=== PATIENT | female | born 1950 | race Caucasian/White ===

== ENCOUNTER 2024-08-30 14:40 | Emergency (ER) | payer MEDICARE, SELFPAY ==
[2024-08-30 14:40] VITALS: BP 238/99; PULSE 96; RESP 18; O2SAT 99
--- NOTE | 2024-08-30 15:09 | W.ED.GENAD ---
Discharge Plan Disposition Patient Disposition: Home Discharge Details Clinical Impression: Blood pressure elevated without history of HTN Primary Care Provider: None,None ED Provider: Fareed Meza Home Meds and New Rx's Prescriptions: Discontinued ibuprofen [Advil] 200 mg tablet 800 mg PO Q6H PRN Discharge Instructions Instructions: DASH diet Additional Instructions: You are seen in the emergency department for your high blood pressure. Your labs shows that your kidneys are working well but I am concerned about the ibuprofen you have been taking. Please rely on acetaminophen (Tylenol). If you need to take ibuprofen please follow this dosing schedule below: For your pain please take medications as follows: 1. Take acetaminophen (Tylenol), 1,000 mg (two 500 mg tabs) every 6 hours [2. Take ibuprofen (Advil), 200 mg every 8 hours.] As we discussed if you develop any weakness in any of your extremities or chest pain please return to the emergency department. Please also return if you develop a headache. HPI General Date/Time Provider Initiated Documentation: 08/30/24 14:41. HPI Narrative: MDM This is an overall well-appearing normothermic and not tachycardic 74-year-old female with elevated blood pressure and increased ibuprofen dose. I consider possibility of renal injury for which labs will be performed. Concerning her chronic knee pain she has had no fevers to suggest septic joint. She she does not routinely drink ethanol so not suspicious for gout. No pain or proportion to suggest necrotizing soft tissue infection. Patient is neurologically intact so I am not suspicious for CVA and I do not feel that the patient would be a candidate for tPA will require MRI. Her blood pressure is significantly elevated, which could potentially lead to serious complications such as strokes, heart attacks, and aortic dissections if left untreated for an extended period. The high dose of ibuprofen she has been taking is concerning, as it can cause kidney damage and subsequently elevate blood pressure. Basic laboratory tests will be conducted to assess her overall health status. An intravenous line will be inserted for potential electrolyte adjustments. A referral to a primary care physician will be made for further management of her condition. If the lab results are normal, the primary care physician will decide on the necessity of initiating antihypertensive medication or simply monitoring her blood pressure. 2. Chronic knee pain. She reports chronic knee pain and difficulty getting up from a seated position. She has been taking 4 Advil (ibuprofen) 200 mg tablets in the morning, afternoon, and at bedtime, which is higher than the recommended dose. She is advised to reduce her ibuprofen intake to 600 mg every six to eight hours, assuming her kidney function is normal. Further evaluation and management of her knee pain will be discussed with her primary care physician. 4:12 PM Patient blood pressure improved slightly but remains elevated. I have asked health community development technician coordinator Katty reach out to on-call telephone provider, [place], for today to have the patient seen in follow-up. Patient I discussed that she should return to the ED if she developed any syncope chest pain shortness of breath or any weakness in any of her extremities. She understood her return indications and was discharged with an empiric trial of expectant outpatient management. I updated the patient's daughters. Patient's blood pressure did improve to 213/82. HPI The patient presents for evaluation of elevated blood pressure. She experienced a mechanical fall from a roller chair, necessitating a lift assist from the fire department. During their assessment, they noted significantly elevated blood pressure, prompting her to seek medical attention today. She reports no symptoms related to this hypertension, including no head trauma, loss of consciousness, vomiting, or nausea. Her mobility remains unchanged, although she does have pre-existing knee and leg issues that make it difficult for her to get up from a seated position. She reports no headaches, speech difficulties, dysuria, chest pain, or abdominal pain. Prior to the fall, she was in her usual state of health. She has not sought medical care in several years and does not have a primary care physician. She can not recall her last medical visit, but estimates it was over a decade ago. She is not experiencing any respiratory distress or unintentional weight gain. She recalls a previous episode of hypertension at [facility] approximately 10 years ago, but no treatment was initiated at that time. She reports no current medication use, but admits to taking Advil 200 mg 4 tablets in the morning, 4 tablets in the afternoon, and 4 tablets at bedtime. She also took 4 tablets prior to this visit. She has been using ibuprofen daily since the onset of her knee issues. She has a history of a bacterial infection in her stomach approximately 20 to 25 years ago, which required ICU admission. Exam General: Well-appearing in no acute distress speaking in complete sentences. Head: Normocephalic, atraumatic. Eye:[Pupils equal, round reactive to light.] Extraocular eye movements intact. No conjunctival injection. No scleral icterus. Ear, nose, mouth, throat: Grossly normal inspection. Normal voice, handling secretions normally. Neck: Trachea midline. Cardiovascular: Well-perfused distal extremities. Respiratory: Nonlabored respiration. Clear lungs bilaterally. Gastrointestinal: Nondistended abdomen. Musculoskeletal: No edema. Moving all 4 extremities spontaneously. Skin: Normal for age and race, grossly normal temperature and turgor. No acute rash. Neurologic: Alert and appropriate, no apparent acute deficits. Cranial nerves II through XII intact grossly. 5 out of 5 bilateral upper lower extremity strength. Related Data Allergies Allergy/AdvReac Type Severity Reaction Status Date / Time No Known Allergies Allergy Verified 08/30/24 14:47 General Stated Complaint: GenMedical BELEN: 3 Course Vital Signs Vital signs: Vital Signs Pulse 96 H 08/30/24 14:40 Respiratory Rate 18 08/30/24 14:40 Blood Pressure 238/99 H 08/30/24 14:40 Pulse Oximetry 99 08/30/24 14:40 Pulse 96 H 08/30/24 14:40 Respiratory Rate 18 08/30/24 14:40 Blood Pressure 238/99 H 08/30/24 14:40 Pulse Oximetry 99 08/30/24 14:40 Oxygen Delivery Method Room Air 08/30/24 14:40 Oxygen Flow Rate 0 08/30/24 14:40 Medical Decision Making Quality:SDOH Health Related Social Needs: No Data to Display PFSH All Active Problems (Updated 08/30/24 @ 16:13 by Fareed Meza MD) Blood pressure elevated without history of HTN (Acute) Social History Smoking risk assessment performed?: No
[2024-08-30 15:28] VITALS: TEMP 36.6
[2024-08-30 15:35] LABS: Abs Immature Grans 0.04 10^3/uL (0.0-0.06); Absolute Basophil Count 0.07 10^3/uL (0.0-0.2); Absolute Eosinophil Count 0.01 10^3/uL (0.0-0.7); Absolute Lymphocyte Count 1.27 10^3/uL (1.2-3.4); Absolute Monocyte Count 1.08 10^3/uL (0.1-0.8); Basophils % 0.5 %; Eosinophils % 0.1 %; HGB 14.1 g/dL (11.2-15.7); Immature Grans % 0.3 %; Lymphocytes % 9.5 %; MCH 28.5 pg (27.0-33.0); MCV 89 fL (80-95); MPV 10.4 fL (8.0-11.0); Monocytes % 8.1 %; Neutrophils % 81.5 %; Platelet Count 329 10^3/uL (130-400); RBC 4.95 10^6/uL (3.93-5.22); RDW 13.4 % (11.7-14.6); RDW-SD 43.8 fL; WBC 13.38 10^3/uL (4.4-10.8)
[2024-08-30 15:39] LABS: Anion Gap 11.4 mmol/L (3-11); BUN 33 mg/dL (7-18); CO2 26.6 mmol/L (21.0-32.0); CREATININE 1.1 mg/dL (0.55-1.02); Calcium 9.6 mg/dL (8.5-10.1); Chloride 107 mmol/L (98-107); Estimated GFR 52.73 (mL/min/1.73m2); Glucose 102 mg/dL (74-106); Potassium 3.9 mmol/L (3.5-5.1); Sodium 145 mmol/L (136-145)
== END 2024-08-30 17:38 | disposition home or self-care (01) ==
LOC: ER 16:23
PROVIDERS: Emergency Provider Emergency Medicine
DX: R03.0 Elevated blood-pressure reading, without diagnosis of hypertension (principal)
CPT/HCPCS: 36415; 80048; 99283; 85025

== ENCOUNTER 2024-09-28 12:48 | Outpatient (REF) | payer MEDICARE, SELFPAY ==
[2024-09-28 15:38] LABS: Abs Immature Grans 0.02 10^3/uL (0.0-0.06); Absolute Basophil Count 0.06 10^3/uL (0.0-0.2); Absolute Eosinophil Count 0.07 10^3/uL (0.0-0.7); Absolute Monocyte Count 0.63 10^3/uL (0.1-0.8); Absolute Neutrophil Count 6.38 10^3/uL (1.2-6.7); Basophils % 0.7 %; Eosinophils % 0.8 %; Immature Grans % 0.2 %; MCH 28.1 pg (27.0-33.0); MCHC 31.7 % (32.0-36.0); MCV 89 fL (80-95); MPV 11.2 fL (8.0-11.0); Neutrophils % 70.3 %; Platelet Count 405 10^3/uL (130-400); RBC 4.62 10^6/uL (3.93-5.22); RDW 14.4 % (11.7-14.6); RDW-SD 46.1 fL; WBC 9.06 10^3/uL (4.4-10.8)
[2024-09-28 17:30] LABS: ALT 19 U/L (14-59); AST 16 U/L (15-37); Albumin 3.8 g/dL (3.4-5.0); Alkaline Phosphatase 100 U/L (46-116); BUN 13 mg/dL (7-18); Bilirubin, Total 0.37 mg/dL (0.2-1.0); CREATININE 0.8 mg/dL (0.55-1.02); Chloride 107 mmol/L (98-107); Estimated GFR 77.27 (mL/min/1.73m2); Glucose 82 mg/dL (74-106); Potassium 4.7 mmol/L (3.5-5.1); Sodium 143 mmol/L (136-145); Total Protein 6.7 g/dL (6.4-8.2)
== END 2024-09-28 12:49 | disposition home or self-care (01) ==
LOC: NCHCN 12:48
PROVIDERS: Visit Provider Student in an Organized Health Care Education/Training Program
DX: M25.511 Pain in right shoulder (principal)
CPT/HCPCS: 80053; 85025

== ENCOUNTER 2024-11-25 01:11 | Outpatient (CLI) | payer MEDICARE, SELFPAY ==
--- NOTE | 2024-11-25 | DI.MRI_ITS ---
Exam(s) MR UPPER JOINT RT WO EXAM: MR UPPER JOINT RT WO CLINICAL HISTORY: PAIN OF RIGHT SHOULDER, M25.511,MULT FALLS,SWELLING DELTOID,? TEAR. TECHNIQUE: Multiplanar multisequence MRI was performed. COMPARISON: No exams were available for comparison FINDINGS: BONES: There is no fracture or contusion pattern. There is a subchondral cyst seen in the greater tub erosity. JOINTS: There are degenerative changes seen at the acromioclavicular joint. Marked degenerative dukes ges are also seen at the glenohumeral joint with loss of the articular cartilage, joint space narrowi ng and osteophytes seen inferiorly. There is a moderate size joint effusion. TENDONS: Supraspinatus: There is tendinosis of the supraspinatus tendon but no evidence of a tear. Infraspinatus: Unremarkable. Subscapularis: There is tendinosis of the subscapularis tendon but no evidence of a tear. [place]: Unremarkable. Biceps and [place]: There is mild thickening of the long head of the biceps which may represent a tend inosis. No evidence of a tear. MUSCLES: Mild fatty atrophy. The deltoid muscle is intact. GLENOID LABRUM: The glenoid labrum is irregular and heterogeneous consistent with degeneration. SOFT TISSUES: There is fluid seen in the subcoracoid bursa. There are object seen within the subcora coid bursa which may represent loose bodies. LIGAMENTS: Unremarkable. OTHER: There is a small amount of fluid in the subacromial subdeltoid bursa. IMPRESSION: 1. No evidence of a rotator cuff tear. Tendinosis of the supraspinatus, subscapularis and biceps ten don. Mild fatty atrophy of the rotator cuff muscles. 2. The deltoid muscle appears intact. 3. 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 4. Moderate size joint effusion. 5. Irregular and heterogeneous labrum likely reflecting degeneration. DATA REPOSITORY:
== END 2024-11-25 01:31 ==
LOC: DI 01:11
PROVIDERS: PCP Student in an Organized Health Care Education/Training Program; Visit Provider Student in an Organized Health Care Education/Training Program
DX: M75.21 Bicipital tendinitis, right shoulder (principal)
CPT/HCPCS: 73221

== ENCOUNTER 2024-12-21 13:55 | Outpatient (CLI) | payer MEDICARE, MEDICAID, SELFPAY ==
--- NOTE | 2024-12-21 13:45 | DI.RAD_ITS ---
Exam(s) XR SHOULDER RT COMPLETE 2+V EXAM: XR SHOULDER RT COMPLETE 2+V CLINICAL HISTORY: RIGHT SHOULDER PAIN. TECHNIQUE: 2D digital imaging was performed. Five views. COMPARISON: No exams were available for comparison FINDINGS: BONES: No acute fracture is present. No bony destructive lesion is seen. JOINTS: No dislocation present. There is severe narrowing of the glenohumeral joint space, with a yusef ne-on-bone appearance. There is an inferiorly projecting osteophyte from the margin of the humeral h ead. There is spurring at the glenoid. The AC joint shows mild degenerative changes. SOFT TISSUE: Normal. IMPRESSION: Severe degenerative changes of the glenohumeral joint. DATA REPOSITORY: RADIATION DOSE DELIVERED:
== END 2024-12-21 13:56 | disposition home or self-care (01) ==
LOC: DIORS 13:56
PROVIDERS: PCP Student in an Organized Health Care Education/Training Program; Referring Provider Student in an Organized Health Care Education/Training Program; Visit Provider Student in an Organized Health Care Education/Training Program
DX: M19.011 Primary osteoarthritis, right shoulder (principal)
CPT/HCPCS: 99213; 73030

== ENCOUNTER 2025-04-25 19:37 | Outpatient (CLI) | payer MEDICARE, MEDICAID, SELFPAY ==
[2025-04-25 13:46] LABS: HCT 39.5 % (36.0-46.0); HGB 12.5 g/dL (11.2-15.7); MCH 29.3 pg (27.0-33.0); MCHC 31.6 % (32.0-36.0); MCV 93 fL (80-95); MPV 9.6 fL (8.0-11.0); Platelet Count 367 10^3/uL (130-400); RBC 4.27 10^6/uL (3.93-5.22); RDW 13.3 % (11.7-14.6); RDW-SD 45.4 fL; WBC 8.36 10^3/uL (4.4-10.8)
[2025-04-25 14:25] LABS: Anion Gap 7.3 mmol/L (3-11); BUN 10 mg/dL (7-18); CO2 29.7 mmol/L (21.0-32.0); Calcium 10.0 mg/dL (8.5-10.1); Chloride 104 mmol/L (98-107); Estimated GFR 90.14 (mL/min/1.73m2); Glucose 111 mg/dL (74-106); Potassium 3.8 mmol/L (3.5-5.1); Sodium 141 mmol/L (136-145)
[2025-04-26 09:49] LABS: Prealbumin 22 mg/dL (20-40)
== END 2025-04-25 19:38 | disposition home or self-care (01) ==
LOC: LBO 19:37
PROVIDERS: PCP Student in an Organized Health Care Education/Training Program; Visit Provider Surgery Vascular Surgery
DX: I63.9 Cerebral infarction, unspecified (principal)
CPT/HCPCS: 36415; 80048; 85027; 84134

== ENCOUNTER 2025-05-24 06:24 | Emergency (ER) | payer MEDICARE, MEDICAID, SELFPAY ==
[2025-05-24 06:20] VITALS: BP 191/97; PULSE 78; RESP 16; TEMP 36; O2SAT 97
[2025-05-24 06:34] VITALS: BP 189/80
--- NOTE | 2025-05-24 07:02 | W.ED.GENAD ---
Discharge Plan Disposition Patient Disposition: Home Discharge Details Clinical Impression: Hx of falling, Closed left fibular fracture Primary Care Provider: Kehinde Rodriguez ED Provider: Fareed Meza Home Meds and New Rx's Prescriptions: Continued clopidogrel 75 mg tablet 75 mg PO DAILY amlodipine 5 mg tablet 5 mg PO DAILY diclofenac sodium [Arthritis Pain (diclofenac)] 1 % gel 2 g topical QID Rx Instructions: apply to single elbow, wrist or hand; for hand includes palm/fingers/back of hand aspirin [Adult Low Dose Aspirin] 81 mg tablet,delayed release (DR/EC) 81 mg PO DAILY atorvastatin 40 mg tablet 40 mg PO QHS acetaminophen [Tylenol Extra Strength] 500 mg tablet 1,000 mg PO QID PRN lisinopril 10 mg tablet 10 mg PO DAILY cyanocobalamin (vitamin B-12) 1,000 mcg capsule 1,000 mcg PO DAILY Discharge Instructions Additional Instructions: You are seen the emergency department for your fall. Your x-ray showed that you have a fracture of your fibula. Please use his hinged knee brace. You may bear weight as tolerated. As we discussed if you become lightheaded passout or if you have any other concerns please return to the emergency department. Otherwise please follow-up with orthopedic team. For your pain please take medications as follows: 1. Take acetaminophen (Tylenol), 1,000 mg (two 500 mg tabs) every 6 hours Discharge Data Discharge Date/Time-TO BE ENTERED AT DEPARTURE: 05/24/25 13:05 HPI General Date/Time Provider Initiated Documentation: 05/24/25 06:34. HPI Narrative: MDM Primary survey intact. Reassuring shock index. On secondary survey patient has pain in her proximal right humerus. She can touch her right arm to her contralateral left shoulder so I am not suspicious for right shoulder dislocation. She had no preceding chest pain to suggest benefit from ECG. No black or bloody stools to suggest GI bleed however will obtain basic blood counts and electrolyte assessment. No pain out of proportion to suggest necrotizing soft tissue infection. No dysuria or frequency of his UTI. No shortness of breath to suggest PE. No focal neurological deficits to suggest recurrent CVA. Nontender hips so I am not suspicious for hip fracture. 10 AM CBC lacks anemia and leukocytosis. Mild thrombocytosis. Patient metabolic panel with no RE. Reassuring electrolytes. Radiology was concerned for possible fibular head fracture on x-ray. Will complete CT scan for more sensitive study. 11:41 AM Patient had a reassuring right shoulder and humerus film with no acute fractures. Her x-ray was concerning for a left fibular head fracture. I obtained a CT which showed left fibular head fracture. I reviewed the patient's imaging with Dr. Romero. He did not feel that this was unstable and that patient could have a hinged knee brace and be weightbearing as tolerated. Patient has a walker in the car. Will obtain tib-fib films prior to discharge. Patient her daughter and I discussed with her not to use opiates. Patient has some of her pain medications at home. Will advise acetaminophen. We discussed return indications for syncope worsening pain or any other concerns. 4:05 PM Final read on tib-fib films showed no additional injuries beyond the proximal fibular fracture. Blood pressure improved following home oral medications at time of discharge. HPI This is a patient with a history of strokes and recent carotid artery surgery presenting with a fall. The patient experienced a fall this morning at 4:30 AM while getting out of bed. She reports losing her balance and landing on her buttocks, hitting her right shoulder against the door, and twisting her left knee. She did not lose consciousness and reports no nausea, vomiting, or head injury. She is currently on aspirin and clopidogrel. She has not yet taken her home medications today. The patient reports no neck pain, headaches, chest pain, trouble breathing, or abdominal pain. She does report soreness in her left knee, right arm, and both buttocks. The patient had a fall in 08/2024 and was brought in by ambulance due to a suspected stroke but was sent home. She had another stroke in 10/2024 and underwent carotid artery surgery three weeks ago. She experienced internal bleeding and was readmitted to [facility]. She was in rehab for a couple of weeks after the ICU and returned home last . PAST SURGICAL HISTORY: Carotid artery surgery three weeks ago. Exam General: Well-appearing in no acute distress speaking in complete sentences. Head: Normocephalic, atraumatic. Eye: Extraocular eye movements intact. No conjunctival injection. No scleral icterus. Ear, nose, mouth, throat: Grossly normal inspection. Normal voice, handling secretions normally. Neck: Trachea midline. No midline cervical spinal tenderness. On the left side of the patient's neck and upper chest there is a clean dry intact bandage from recent surgical procedure. No signs of erythema nor strikethrough. Cardiovascular: Well-perfused distal extremities. Regular rate and rhythm. Respiratory: Nonlabored respiration. Clear lungs bilaterally. Gastrointestinal: Nondistended abdomen. Soft nontender. Musculoskeletal: Right shoulder no obvious deformities. Patient does have right proximal humerus tenderness. No lacerations. Left upper extremity nontender full range of motion. Right lower extremity nontender full range of motion. Left lower extremity with tenderness at the knee. No gross instability. No lacerations or ecchymoses. Not pulses PT and DP intact bilaterally. Pelvis stable nontender. Skin: Normal for age and race, grossly normal temperature and turgor. No acute rash. Neurologic: Alert and appropriate, no apparent acute deficits. GCS 15. Psychiatric: Mood and manner are appropriate. Grooming and personal hygiene are appropriate. Related Data Home Medications ?Medication ?Instructions ?Recorded ?Confirmed acetaminophen 500 mg tablet 1,000 mg PO QID PRN 11/03/24 05/24/25 (Tylenol Extra Strength) aspirin 81 mg tablet,delayed 81 mg PO DAILY 11/03/24 05/24/25 release (Adult Low Dose Aspirin) atorvastatin 40 mg tablet 40 mg PO QHS 11/03/24 05/24/25 diclofenac sodium 1 % topical gel 2 g topical QID 11/03/24 05/24/25 (Arthritis Pain (diclofenac)) cyanocobalamin (vitamin B-12) 1,000 mcg PO DAILY 12/16/24 05/24/25 1,000 mcg capsule lisinopril 10 mg tablet 10 mg PO DAILY 12/16/24 05/24/25 amlodipine 5 mg tablet 5 mg PO DAILY 12/21/24 05/24/25 clopidogrel 75 mg tablet 75 mg PO DAILY 12/21/24 05/24/25 Allergies Allergy/AdvReac Type Severity Reaction Status Date / Time No Known Allergies Allergy Verified 12/21/24 13:52 General Stated Complaint: Orthopedic BELEN: 3 Course Vital Signs Vital signs: Vital Signs Temperature 36 C L 05/24/25 06:20 Pulse 78 05/24/25 06:20 Respiratory Rate 16 05/24/25 06:20 Blood Pressure 191/97 H 05/24/25 06:20 Pulse Oximetry 97 05/24/25 06:20 Temperature 36 C L 05/24/25 06:20 Pulse 78 05/24/25 06:20 Respiratory Rate 16 05/24/25 06:20 Blood Pressure 189/80 H 05/24/25 06:34 Blood Pressure Mean 116 05/24/25 06:34 Blood Pressure Position Supine 05/24/25 06:20 Pulse Oximetry 97 05/24/25 06:20 Oxygen Delivery Method Room Air 05/24/25 06:20 Oxygen Flow Rate 0 05/24/25 06:20 Pain Level 5 05/24/25 06:28 PFSH All Active Problems (Updated 05/24/25 @ 11:24 by Fareed Meza MD) Closed left fibular fracture (Acute) Hx of falling (Acute) Arthritis of right glenohumeral joint (Acute) BMI 37.0-37.9, adult (Acute) History of CVA (cerebrovascular accident) (Acute) TIA (transient ischemic attack) (Acute) Medical History (Updated 05/24/25 @ 11:24 by Fareed Meza MD) Palpitations Adjustment disorder with depressed mood Systolic murmur Pain in left toe(s) Right shoulder pain Social History Smoking/Tobacco Use Status: Former Tobacco Use Quit Date: 08/04/14 Smoking risk assessment performed?: Yes Alcohol Intake: never Drug use: Never Substance use type: does not use Housing: house Do you feel safe at home: Yes Do you feel safe in your relationship?: Yes
--- NOTE | 2025-05-24 07:30 | DI.RAD_ITS ---
Exam(s) XR HUMERUS RT XR SHOULDER RT COMPLETE 2+V EXAM: XR SHOULDER RT COMPLETE 2+V and XR humerus RT CLINICAL HISTORY: Right shoulder pain. TECHNIQUE: 2D digital imaging was performed of the right humerus and shoulder. Eight images were obtained. AP, [place]as[place], Y-view, lateral and axillary views were obtained. COMPARISON: CR XR SHOULDER RT COMPLETE 2+V from 12/21/2024 FINDINGS: BONES: No acute fracture is present. No bony destructive lesion is seen. JOINTS: No dislocation present. There again seen marked degenerative changes at the glenohumeral joint characterized by joint space narrowing and osteophytes. There is a large osteophyte at the inferior aspect of the humeral head. There is also mild flattening of the humeral head. Aysi-oc-smwrzcrr degenerative changes are seen at the acromioclavicular joint. SOFT TISSUE: Normal. IMPRESSION: 1. There is no acute fracture or dislocation. 2. Marked osteoarthritis of the glenohumeral joint. 3. Mild degenerative changes at the acromioclavicular joint. DATA REPOSITORY: RADIATION DOSE DELIVERED:
--- NOTE | 2025-05-24 07:30 | DI.RAD_ITS ---
Exam(s) XR KNEE LT 3V AP,LAT,RADHA EXAM: XR KNEE LT 3V AP,LAT,RADHA CLINICAL HISTORY: Left knee pain. TECHNIQUE: 2D digital imaging was performed of the left knee. Three images were obtained. Eight thatAP, lateral and PA tunnel views were obtained. COMPARISON: No exams were available for comparison FINDINGS: BONES: There is a horizontal lucency through the lateral aspect of the head of the fibula suspicious for fracture. No bony destructive lesion is seen. JOINTS: There are moderately severe degenerative changes of the left knee characterized by joint space narrowing and osteophytes. All 3 joint compartments are affected. There is a joint effusion. No loose body. SOFT TISSUE: Normal. IMPRESSION: 1. Nondisplaced fracture through the head of the fibula. 2. Moderately severe degenerative changes involving the left knee, particularly the patellofemoral joint. 3. Joint effusion. DATA REPOSITORY: RADIATION DOSE DELIVERED:
[2025-05-24] MEDS: Acetaminophen 500 MG TAB 1000 MG PO (08:12)
[2025-05-24] MEDS: Lisinopril 10 MG TAB PO (08:12)
[2025-05-24 09:14] LABS: Abs Immature Grans 0.04 10^3/uL (0.0-0.06); HCT 34.9 % (36.0-46.0); HGB 11.2 g/dL (11.2-15.7); Immature Grans % 0.4 %; MCH 29.1 pg (27.0-33.0); MCHC 32.1 % (32.0-36.0); MCV 91 fL (80-95); MPV 9.1 fL (8.0-11.0); Platelet Count 428 10^3/uL (130-400); RBC 3.85 10^6/uL (3.93-5.22); RDW 13.8 % (11.7-14.6); RDW-SD 45.4 fL; WBC 10.42 10^3/uL (4.4-10.8)
[2025-05-24 09:21] LABS: Anion Gap 9.3 mmol/L (3-11); BUN 12 mg/dL (7-18); CO2 27.7 mmol/L (21.0-32.0); Calcium 9.2 mg/dL (8.5-10.1); Chloride 105 mmol/L (98-107); Estimated GFR 93.55 (mL/min/1.73m2); Glucose 84 mg/dL (74-106); Potassium 4.4 mmol/L (3.5-5.1); Sodium 142 mmol/L (136-145)
--- NOTE | 2025-05-24 10:00 | DI.CT_ITS ---
Exam(s) CT LOWER EXTREMITY LT WO EXAM: CT LOWER EXTREMITY LT WO CLINICAL HISTORY: Left knee pain x-ray of nondisplaced fibular fract. TECHNIQUE: Imaging Protocol: Axial computed tomography images with coronal and sagittal reformatted images were created and reviewed. COMPARISON: CR XR KNEE LT 3V AP,LAT,RADHA from 05/24/2025 FINDINGS: Bones: There is an obliquely oriented fracture through the head of the fibula. This can be appreciated on the sagittal views (series 8, images 61 through 67.). No other fractures appreciated. No cellulitic or osteomyelitic changes are identified. Moderately severe degenerative changes are present in the knee involving all 3 joint compartments characterized by joint space narrowing and osteophytes. There is a small joint effusion. Soft Tissues: Atherosclerotic calcification is present. IMPRESSION: 1. Acute nondisplaced fracture through the head of the fibula. 2. Tricompartment osteoarthritis. RADIATION DOSE DELIVERED: 177.24mGy.cm Total DLP 177.24mGy.cm Total DLP DATA REPOSITORY: All CT scans at this facility are submitted to the National Radiology Data Registry (NRDR) Dose Index Registry (DIR) with the [employer] ([employer]). RADIATION OPTIMIZATION: All CT scans at this facility use at least one of these dose optimization techniques: automated exposure control; mA and/or kV adjustment per patient size (includes targeted exams where dose is matched to clinical indication); or iterative reconstruction.
--- NOTE | 2025-05-24 11:30 | DI.RAD_ITS ---
Exam(s) XR TIB/FIB LT EXAM: XR TIB/FIB LT CLINICAL HISTORY: Fibular fracture. TECHNIQUE: 2D digital imaging was performed of the left tibia and fibula. Four images were obtained. AP and lateral views were obtained. COMPARISON: CR XR KNEE LT 3V AP,LAT,RADHA from 05/24/2025 FINDINGS: BONES: There is again seen a nondisplaced fracture involving the fibular head. No bony destructive lesion is seen. Marked degenerative changes are seen in the knee particularly at the patellofemoral joint. SOFT TISSUE: Atherosclerotic calcification is present. IMPRESSION: Nondisplaced fracture of the fibular head. DATA REPOSITORY: RADIATION DOSE DELIVERED:
[2025-05-24 13:01] VITALS: BP 144/88
--- NOTE | 2025-06-21 16:42 | NUR.NOTE ---
Accessed Pt chart to print off Provider Notes for [facility] paperwork
== END 2025-05-24 13:05 | disposition home or self-care (01) ==
PROVIDERS: Emergency Provider Emergency Medicine; PCP Student in an Organized Health Care Education/Training Program
DX: S82.402A Unspecified fracture of shaft of left fibula, initial encounter for closed fracture (principal); W19.XXXA Unspecified fall, initial encounter
CPT/HCPCS: 99283; 99285; 36415; 73562; 80048; 73030; 73060; 73590; 73700; 85025

== ENCOUNTER 2025-05-26 13:31 | Emergency (ER) | payer MEDICARE, MEDICAID, SELFPAY ==
[2025-05-26 13:38] VITALS: BP 163/87; PULSE 85; RESP 20; TEMP 36.9; O2SAT 98
--- NOTE | 2025-05-26 14:30 | DI.CT_ITS ---
Exam(s) CT SACRUM AND COCCYX WO EXAM: CT SACRUM AND COCCYX WO CLINICAL HISTORY: fall with worsening pain of sacrum. TECHNIQUE: Imaging Protocol: Axial computed tomography images with coronal and sagittal reformatted images were created and reviewed. CONTRAST MATERIAL: Intravenous: Omnipaque 350 Contrast volume:Noncontrast contrast route:IV - Oral: / no COMPARISON: None. FINDINGS: Bones: No evidence of acute fracture. There are degenerative changes at L4-5 and L5-S1. There are degenerative changes in the hips. No suspicious destructive lesions. Soft Tissues: The visualized SI joints and sacrum are will maintained. The paraspinal soft tissues are unremarkable. The visualized intra-abdominal contents are unremarkable. IMPRESSION: No acute abnormality. RADIATION DOSE DELIVERED: Total DLP DATA REPOSITORY: All CT scans at this facility are submitted to the National Radiology Data Registry (NRDR) Dose Index Registry (DIR) with the [employer] (ACR). RADIATION OPTIMIZATION: All CT scans at this facility use at least one of these dose optimization techniques: automated exposure control; mA and/or kV adjustment per patient size (includes targeted exams where dose is matched to clinical indication); or iterative reconstruction.
[2025-05-26] MEDS: oxyCODONE 5 MG TAB PO (14:53)
[2025-05-26 15:10] LABS: Abs Immature Grans 0.03 10^3/uL (0.0-0.06); HCT 35.2 % (36.0-46.0); HGB 11.2 g/dL (11.2-15.7); Immature Grans % 0.3 %; MCH 29.2 pg (27.0-33.0); MCHC 31.8 % (32.0-36.0); MCV 92 fL (80-95); MPV 8.9 fL (8.0-11.0); Platelet Count 453 10^3/uL (130-400); RBC 3.84 10^6/uL (3.93-5.22); RDW 13.8 % (11.7-14.6); RDW-SD 46.2 fL; WBC 10.13 10^3/uL (4.4-10.8)
[2025-05-26 15:25] LABS: ALT 28 U/L (14-59); AST 19 U/L (15-37); Albumin 3.5 g/dL (3.4-5.0); Alkaline Phosphatase 122 U/L (46-116); Anion Gap 9.4 mmol/L (3-11); BUN 17 mg/dL (7-18); Bilirubin, Total 0.3 mg/dL (0.2-1.0); CO2 26.6 mmol/L (21.0-32.0); Calcium 9.1 mg/dL (8.5-10.1); Chloride 104 mmol/L (98-107); Estimated GFR 76.79 (mL/min/1.73m2); Glucose 94 mg/dL (74-106); Potassium 4.1 mmol/L (3.5-5.1); Sodium 140 mmol/L (136-145); Total Protein 7.1 g/dL (6.4-8.2)
--- NOTE | 2025-05-26 15:57 | W.ED.GENAD ---
Discharge Plan Disposition Patient Disposition: Home Discharge Details Clinical Impression: Sacral pain Primary Care Provider: Kehinde Rodriguez ED Provider: Monroe Mariano Home Meds and New Rx's Prescriptions: New oxycodone 5 mg tablet 5 mg PO Q6H PRNQty: 10 0RF Continued clopidogrel 75 mg tablet 75 mg PO DAILY amlodipine 5 mg tablet 5 mg PO DAILY diclofenac sodium [Arthritis Pain (diclofenac)] 1 % gel 2 g topical QID Rx Instructions: apply to single elbow, wrist or hand; for hand includes palm/fingers/back of hand aspirin [Adult Low Dose Aspirin] 81 mg tablet,delayed release (DR/EC) 81 mg PO DAILY atorvastatin 40 mg tablet 40 mg PO QHS acetaminophen [Tylenol Extra Strength] 500 mg tablet 1,000 mg PO QID PRN lisinopril 10 mg tablet 10 mg PO DAILY cyanocobalamin (vitamin B-12) 1,000 mcg capsule 1,000 mcg PO DAILY Discharge Instructions Instructions: Coccyx Injury Additional Instructions: Please follow-up with your primary care provider regarding your visit to the emergency department today. Be sure to discuss results of all test performed here today to include radiology, and laboratory testing as well as results for any pending cultures. Should your symptoms worsen, or if you develop new concerning symptoms, please return immediately emergency department for further evaluation. HPI General Date/Time Provider Initiated Documentation: 05/26/25 14:21. HPI Narrative: MDM/Narrative: 75-year-old female post fall with worsening sacral pain. Sacral imaging conducted. Differential Diagnosis: - Bony injury: Suspected due to fall onto sacrum. Sacral imaging to assess. - Infection or metabolic disorder: Low suspicion. Basic blood work if admission required. Disposition: - Discuss with hospitalist team for admission for PT, OT assessment, and long-term rehab placement. Follow-Up: Discuss with hospitalist team for admission eligibility. PT and OT assessment. Long-term rehab placement or at-home therapies. This document was created with assistance from [employer]. The patient consented to its use. HPI: The patient is a 75-year-old female presenting with sacralgia. Her past medical history is significant for cerebrovascular accident (CVA) following left carotid artery stenting complicated by internal hemorrhage, after which she was [facility] to a [facility] ([facility]). She currently resides at home with her niece and receives family support, utilizing a walker for ambulation. Approximately 48 hours ago, the patient sustained a fall, resulting in a fracture of the left fibula, and she is now fitted with a knee hinge brace. Since the fall, she reports exacerbation of sacralgia, having fallen directly onto her sacrum. She denies any associated numbness, weakness, alterations in bowel or urinary habits, or other new symptoms. ROS: Negative besides as mentioned above Exam: Vital signs: Reviewed. General Appearance: Elderly female, intermittently emotional and tearful. HEENT: NCAT, EOMI, not icteric. External ears normal. No rhinorrhea. Moist mucous membranes. Neck: Supple, full range of motion, no observable masses, No meningeal sign. Respiratory: No Respiratory distress. No tachypnea. Cardiovascular: RRR, no edema. Gastrointestinal: Abdomen soft. Back: Cervical, thoracic, and lumbar spine without step-offs or tenderness. Sacral tenderness to palpation. Musculoskeletal: Hinged knee brace on left knee. Skin: Warm and dry, no rash. Neurological: Normal Gait, Grossly intact. Psychiatric: Appropriate for situation. Other observations: Rest of exam normal. Labs: Laboratory Tests Range/Units 05/26/25 15:05 WBC (4.4-10.8) 10^3/uL 10.13 RBC (3.93-5.22) 10^6/uL 3.84 L Hgb (11.2-15.7) g/dL 11.2 Hct (36.0-46.0) % 35.2 L MCV (80-95) fL 92 MCH (27.0-33.0) pg 29.2 MCHC (32.0-36.0) % 31.8 L RDW (11.7-14.6) % 13.8 Plt Count (130-400) 10^3/uL 453 H MPV (8.0-11.0) fL 8.9 Immature Gran % % 0.3 Neutrophils % % 65.7 Lymphocytes % % 22.7 Monocytes % % 7.3 Eosinophils % % 3.1 Basophils % % 0.9 Nucleated RBC % (0.0-0.3) % 0.0 Absolute Neutrophils (1.2-6.7) 10^3/uL 6.66 Absolute Lymphocytes (1.2-3.4) 10^3/uL 2.30 Absolute Monocytes (0.1-0.8) 10^3/uL 0.74 Absolute Eosinophils (0.0-0.7) 10^3/uL 0.31 Absolute Basophils (0.0-0.2) 10^3/uL 0.09 Sodium (136-145) mmol/L 140 Potassium (3.5-5.1) mmol/L 4.1 Chloride (98-107) mmol/L 104 Carbon Dioxide (21.0-32.0) mmol/L 26.6 Anion Gap (3-11) mmol/L 9.4 BUN (7-18) mg/dL 17 Creatinine (0.55-1.02) mg/dL 0.8 Est GFR (CKD-EPI 2020) (mL/min/1.73m2) 76.79 Glucose (74-106) mg/dL 94 Calcium (8.5-10.1) mg/dL 9.1 Total Bilirubin (0.2-1.0) mg/dL 0.3 AST (15-37) U/L 19 ALT (14-59) U/L 28 Alkaline Phosphatase (46-116) U/L 122 H Total Protein (6.4-8.2) g/dL 7.1 Albumin (3.4-5.0) g/dL 3.5 Radiology: Exam(s) CT SACRUM AND COCCYX WO EXAM: CT SACRUM AND COCCYX WO CLINICAL HISTORY: fall with worsening pain of sacrum. TECHNIQUE: Imaging Protocol: Axial computed tomography images with coronal and sagittal reformatted images were created and reviewed. CONTRAST MATERIAL: Intravenous: Omnipaque 350 Contrast volume:Noncontrast contrast route:IV - Oral: / no COMPARISON: None. FINDINGS: Bones: No evidence of acute fracture. There are degenerative changes at L4-5 and L5-S1. There are degenerative changes in the hips. No suspicious destructive lesions. Soft Tissues: The visualized SI joints and sacrum are will maintained. The paraspinal soft tissues are unremarkable. The visualized intra-abdominal contents are unremarkable. IMPRESSION: No acute abnormality. Related Data Home Medications ?Medication ?Instructions ?Recorded ?Confirmed acetaminophen 500 mg tablet 1,000 mg PO QID PRN 11/03/24 05/26/25 (Tylenol Extra Strength) aspirin 81 mg tablet,delayed 81 mg PO DAILY 11/03/24 05/26/25 release (Adult Low Dose Aspirin) atorvastatin 40 mg tablet 40 mg PO QHS 11/03/24 05/26/25 diclofenac sodium 1 % topical gel 2 g topical QID 11/03/24 05/26/25 (Arthritis Pain (diclofenac)) cyanocobalamin (vitamin B-12) 1,000 mcg PO DAILY 12/16/24 05/26/25 1,000 mcg capsule lisinopril 10 mg tablet 10 mg PO DAILY 12/16/24 05/26/25 amlodipine 5 mg tablet 5 mg PO DAILY 12/21/24 05/26/25 clopidogrel 75 mg tablet 75 mg PO DAILY 12/21/24 05/26/25 oxycodone 5 mg tablet 5 mg PO Q6H PRN #10 tabs 05/26/25 Previous Rx's ?Medication ?Instructions ?Recorded oxycodone 5 mg tablet 5 mg PO Q6H PRN #10 tabs 05/26/25 Allergies Allergy/AdvReac Type Severity Reaction Status Date / Time No Known Allergies Allergy Verified 05/26/25 13:43 General Stated Complaint: Nk/Back Pain BELEN: 4 Course Vital Signs Vital signs: Vital Signs Temperature 36.9 C 05/26/25 13:38 Pulse 85 05/26/25 13:38 Respiratory Rate 20 05/26/25 13:38 Blood Pressure 163/87 H 05/26/25 13:38 Pulse Oximetry 98 05/26/25 13:38 Temperature 36.9 C 05/26/25 13:38 Pulse 85 05/26/25 13:38 Respiratory Rate 20 05/26/25 13:38 Blood Pressure 163/87 H 05/26/25 13:38 Blood Pressure Position Sitting 05/26/25 13:38 Pulse Oximetry 98 05/26/25 13:38 Oxygen Delivery Method Room Air 05/26/25 13:38 Oxygen Flow Rate 0 05/26/25 13:38 Lab/Test Results Lab/Test Results: Laboratory Tests Range/Units 05/26/25 15:05 WBC (4.4-10.8) 10^3/uL 10.13 RBC (3.93-5.22) 10^6/uL 3.84 L Hgb (11.2-15.7) g/dL 11.2 Hct (36.0-46.0) % 35.2 L MCV (80-95) fL 92 MCH (27.0-33.0) pg 29.2 MCHC (32.0-36.0) % 31.8 L RDW (11.7-14.6) % 13.8 Plt Count (130-400) 10^3/uL 453 H MPV (8.0-11.0) fL 8.9 Immature Gran % % 0.3 Neutrophils % % 65.7 Lymphocytes % % 22.7 Monocytes % % 7.3 Eosinophils % % 3.1 Basophils % % 0.9 Nucleated RBC % (0.0-0.3) % 0.0 Absolute Neutrophils (1.2-6.7) 10^3/uL 6.66 Absolute Lymphocytes (1.2-3.4) 10^3/uL 2.30 Absolute Monocytes (0.1-0.8) 10^3/uL 0.74 Absolute Eosinophils (0.0-0.7) 10^3/uL 0.31 Absolute Basophils (0.0-0.2) 10^3/uL 0.09 Sodium (136-145) mmol/L 140 Potassium (3.5-5.1) mmol/L 4.1 Chloride (98-107) mmol/L 104 Carbon Dioxide (21.0-32.0) mmol/L 26.6 Anion Gap (3-11) mmol/L 9.4 BUN (7-18) mg/dL 17 Creatinine (0.55-1.02) mg/dL 0.8 Est GFR (CKD-EPI 2020) (mL/min/1.73m2) 76.79 Glucose (74-106) mg/dL 94 Calcium (8.5-10.1) mg/dL 9.1 Total Bilirubin (0.2-1.0) mg/dL 0.3 AST (15-37) U/L 19 ALT (14-59) U/L 28 Alkaline Phosphatase (46-116) U/L 122 H Total Protein (6.4-8.2) g/dL 7.1 Albumin (3.4-5.0) g/dL 3.5 PFSH All Active Problems (Updated 05/26/25 @ 16:59 by Monroe Mariano MD) Sacral pain (Acute) Closed left fibular fracture (Acute) Hx of falling (Acute) Arthritis of right glenohumeral joint (Acute) BMI 37.0-37.9, adult (Acute) History of CVA (cerebrovascular accident) (Acute) TIA (transient ischemic attack) (Acute) Medical History (Updated 05/26/25 @ 16:59 by Monroe Mariano MD) Palpitations Adjustment disorder with depressed mood Systolic murmur Pain in left toe(s) Right shoulder pain Social History Smoking/Tobacco Use Status: Former Tobacco Use Quit Date: 08/04/14 Smoking risk assessment performed?: Yes Alcohol Intake: never Drug use: Never Substance use type: does not use Housing: house Do you feel safe at home: Yes Do you feel safe in your relationship?: Yes
[2025-05-26] MEDS: MORPHine IR 15 MG TAB, 4 TABS/BTL PO (17:50)
[2025-05-26 17:55] VITALS: BP 136/84; PULSE 78; RESP 16; O2SAT 94
== END 2025-05-26 17:52 | disposition home or self-care (01) ==
PROVIDERS: Emergency Provider General Practice; PCP Student in an Organized Health Care Education/Training Program
DX: M53.3 Sacrococcygeal disorders, not elsewhere classified (principal); W19.XXXA Unspecified fall, initial encounter
CPT/HCPCS: 99283; 99284; 80053; 72192; 85025

== ENCOUNTER 2025-06-01 14:44 | Outpatient (CLI) | payer MEDICARE, MEDICAID, SELFPAY ==
--- NOTE | 2025-06-01 11:15 | DI.RAD_ITS ---
Exam(s) XR KNEE LT 2V AP,LAT EXAM: XR KNEE LT 2V AP,LAT CLINICAL HISTORY: F/U FRACTURE. TECHNIQUE: 2D digital imaging was performed of the left knee. Two images were obtained. AP and lateral views were obtained. COMPARISON: CR XR KNEE LT 3V AP,LAT,RADHA from 05/24/2025 FINDINGS: BONES: There is no change in alignment of the nondisplaced fibular head fracture. No bony destructive lesion is seen. JOINTS: Tricompartment degenerative changes are present characterized by joint space narrowing and osteophytes. The findings are most marked in the medial femoral tibial and patellofemoral joints. There is a small joint effusion. No loose body. SOFT TISSUE: Normal. IMPRESSION: Stable nondisplaced fibular head fracture. DATA REPOSITORY: RADIATION DOSE DELIVERED:
== END 2025-06-01 14:45 | disposition home or self-care (01) ==
LOC: DIORS 14:45
PROVIDERS: PCP Student in an Organized Health Care Education/Training Program; Visit Provider Student in an Organized Health Care Education/Training Program
DX: S82.832A Other fracture of upper and lower end of left fibula, initial encounter for closed fracture (principal); M17.12 Unilateral primary osteoarthritis, left knee; W19.XXXA Unspecified fall, initial encounter; Z79.01 Long term (current) use of anticoagulants
CPT/HCPCS: 99214; 73560

== ENCOUNTER 2025-07-18 15:14 | Outpatient (REF) | payer MEDICARE, MEDICAID, SELFPAY ==
[2025-07-18 15:25] LABS: Glucose Negative (Negative)
[2025-07-18 15:27] LABS: C & S Indicated? No; RBC Negative HPF (0-2); WBC 0-2 HPF (0-5)
== END 2025-07-18 15:15 | disposition home or self-care (01) ==
LOC: NCHCN 15:14
PROVIDERS: PCP Student in an Organized Health Care Education/Training Program; Visit Provider Student in an Organized Health Care Education/Training Program
DX: R39.9 Unspecified symptoms and signs involving the genitourinary system (principal)
CPT/HCPCS: 81003; 81015

== ENCOUNTER 2025-07-25 16:17 | Outpatient (REF) | payer MEDICARE, MEDICAID, SELFPAY ==
[2025-07-25 15:44] LABS: HCT 35.5 % (36.0-46.0); HGB 11.3 g/dL (11.2-15.7); MCH 29.4 pg (27.0-33.0); MCHC 31.8 % (32.0-36.0); MCV 92 fL (80-95); MPV 10.3 fL (8.0-11.0); Platelet Count 359 10^3/uL (130-400); RBC 3.84 10^6/uL (3.93-5.22); RDW 13.8 % (11.7-14.6); RDW-SD 47.2 fL; WBC 8.08 10^3/uL (4.4-10.8)
[2025-07-25 16:04] LABS: ALT 12 U/L (10-49); AST 16 U/L (<34); Albumin 3.7 g/dL (3.2-5.0); Alkaline Phosphatase 83 U/L (46-116); Anion Gap 9 mmol/L (3-11); BUN 16 mg/dL (9-23); Bilirubin, Total 0.3 mg/dL (0.2-1.2); CO2 26.0 mmol/L (20.0-31.0); Calcium 9.1 mg/dL (8.3-10.6); Chloride 110 mmol/L (98-107); Glucose 70 mg/dL (74-106); Potassium 4.3 mmol/L (3.5-5.1); Sodium 145 mmol/L (136-145); Total Protein 5.8 g/dL (5.7-8.2)
== END 2025-07-25 16:18 | disposition home or self-care (01) ==
LOC: NCHCN 16:17
PROVIDERS: PCP Student in an Organized Health Care Education/Training Program; Visit Provider Family Medicine
DX: I10 Essential (primary) hypertension (principal); D50.9 Iron deficiency anemia, unspecified
CPT/HCPCS: 80053; 85027